=== PATIENT | female | born 1995 | race American Indian/Alaskan Native ===

== ENCOUNTER 2021-06-30 04:54 | Emergency (ER) | payer SELFPAY ==
[2021-06-30 05:37] LABS: Bilirubin,Urine NEG (Negative); Blood,Urine LG (Negative); Color,Urine Amber (Yellow); Mucus,Urine 3+ /HPF
[2021-06-30 05:38] LABS: RBC,Urine > 182.0 /HPF (0.0-6.0)
--- NOTE | 2021-06-30 05:43 | Emergency Department Report ---
HPI - HPI HPI: For the last 7 days the patient has been experiencing a pain that originated on her left flank region and has been radiating down to her left lower quadrant and suprapubic area. The pain is sharp constant severe and worse with movement and better with standing still. She has taken Tylenol with some improvement. She has had associated nausea and about 2 episodes of emesis per day but is able to tolerate fluids. She denies fever chills dysuria hematuria urinary frequency diarrhea or constipation. <RALPH ZHANG - Last Filed: 06/30/21 05:40> <BETO ROMAN - Last Filed: 06/30/21 07:00> - General Chief Complaint: Abdominal Pain Time Seen by Provider: 06/30/21 05:36 ED Past Medical Hx - Past Medical History Additional medical history: Bronchitis - Surgical History Past Surgical History?: No - Family History Family history: no significant - Social History Smoking Status: Never Smoker Substance Use Type: None <RALPH ZHANG - Last Filed: 06/30/21 05:40> <BETO ROMAN - Last Filed: 06/30/21 07:00> - Medications Home Medications: Home Medications Medication Instructions Recorded Confirmed Last Taken Type Ciprofloxacin HCl 500 mg PO BID #20 06/30/21 Unknown Rx HYDROcodone/APAP 5-325 [[place] 1 - 2 each PO Q6HR PRN #10 tablet 06/30/21 Unknown Rx 5/325] Ibuprofen [Motrin 800 MG tab] 800 mg PO Q8HR PRN #20 tablet 06/30/21 Unknown Rx ED Review of Systems ROS: Stated complaint: LT SIDE PAIN,BACK PAIN,CERVIX PAIN Other details as noted in HPI Comment: All other systems reviewed and negative <RALPH ZHANG - Last Filed: 06/30/21 05:40> ROS: Stated complaint: LT SIDE PAIN,BACK PAIN,CERVIX PAIN Other details as noted in HPI <BETO ROMAN - Last Filed: 06/30/21 07:00> Physical Exam - Physical Exam Vital Signs: Vital Signs 06/30/21 05:01 Temperature 98.3 F Pulse Rate 101 H Respiratory 18 Rate Blood Pressure 130/95 O2 Sat by Pulse 100 Oximetry Physical Exam: Physical Exam Constitutional: General: She is in mild acute distress Appearance: She is diaphoretic Head: Normocephalic. Eyes: Pupils: Pupils are equal, round, and reactive to light. Neck: Musculoskeletal: Normal range of motion. Cardiovascular: Rate and Rhythm: Normal rate and regular rhythm. Pulses: Intact distal pulses. Heart sounds: Normal heart sounds. No murmur. Pulmonary: Effort: No respiratory distress. Breath sounds: No wheezing or rales. Chest: Chest wall: No tenderness. Abdominal: General: There is no distension. Palpations: There is no mass. Tenderness: There is moderate to severe left flank tenderness to palpation as well as left lower quadrant moderate tenderness to palpation. There is some guarding and no rebound. Musculoskeletal: Normal range of motion. Skin: General: Skin is warm and dry. Neurological: Mental Status: She is alert and oriented to person, place, and time. Psychiatric: Mood and Affect: Mood and affect normal. Cognition and Memory: Memory normal. Judgment: Judgment normal. <RALPH ZHANG - Last Filed: 06/30/21 05:40> - Physical Exam Vital Signs: Vital Signs 06/30/21 05:01 Temperature 98.3 F Pulse Rate 101 H Respiratory 18 Rate Blood Pressure 130/95 O2 Sat by Pulse 100 Oximetry <BETO ROMAN - Last Filed: 06/30/21 07:00> ED Course Vital Signs 06/30/21 05:01 Temperature 98.3 F Pulse Rate 101 H Respiratory 18 Rate Blood Pressure 130/95 O2 Sat by Pulse 100 Oximetry <RALPH ZHANG - Last Filed: 06/30/21 05:40> Vital Signs 06/30/21 05:01 Temperature 98.3 F Pulse Rate 101 H Respiratory 18 Rate Blood Pressure 130/95 O2 Sat by Pulse 100 Oximetry <BETO ROMAN - Last Filed: 06/30/21 07:00> ED Medical Decision Making - Lab Data Result diagrams: 06/30/21 05:43 06/30/21 05:43 Laboratory Tests 06/30/21 06/30/21 06/30/21 05:43 05:43 05:43 WBC 9.0 RBC 4.38 Hgb 10.5 Hct 32.3 MCV 74 L MCH 24 L MCHC 33 RDW 19.1 H Plt Count 272 Lymph % (Auto) 19.8 [place] % (Auto) 7.6 H Eos % (Auto) 0.8 Baso % (Auto) 0.4 Lymph # (Auto) 1.8 [place] # (Auto) 0.7 Eos # (Auto) 0.1 Baso # (Auto) 0.0 Seg Neutrophils % 71.4 H Seg Neutrophils # 6.4 Sodium 135 L Potassium 3.3 L Chloride 100.0 Carbon Dioxide 21 L Anion Gap 17 BUN 6 L Creatinine 0.6 Estimated GFR > 60 BUN/Creatinine Ratio 10 Glucose 82 Lactic Acid Calcium 9.4 Total Bilirubin 0.30 AST 15 ALT 9 Alkaline Phosphatase 86 Total Protein 8.1 Albumin 3.7 L Albumin/Globulin Ratio 0.8 HCG, Qual Negative Urine Color Urine Turbidity Urine pH Ur Specific [place] Urine Protein Urine Glucose (UA) Urine Ketones Urine Blood Urine Nitrite Urine Bilirubin Urine Urobilinogen Ur Leukocyte Esterase Urine WBC (Auto) Urine RBC (Auto) U Epithel Cells (Auto) Urine Mucus 06/30/21 06/30/21 06:31 Unknown WBC RBC Hgb Hct MCV MCH MCHC RDW Plt Count Lymph % (Auto) [place] % (Auto) Eos % (Auto) Baso % (Auto) Lymph # (Auto) [place] # (Auto) Eos # (Auto) Baso # (Auto) Seg Neutrophils % Seg Neutrophils # Sodium Potassium Chloride Carbon Dioxide Anion Gap BUN Creatinine Estimated GFR BUN/Creatinine Ratio Glucose Lactic Acid 1.00 Calcium Total Bilirubin AST ALT Alkaline Phosphatase Total Protein Albumin Albumin/Globulin Ratio HCG, Qual Urine Color Mya Urine Turbidity Cloudy Urine pH 6.0 Ur Specific [place] 1.023 Urine Protein 100 mg/dl Urine Glucose (UA) Neg Urine Ketones 20 Urine Blood Lg Urine Nitrite Neg Urine Bilirubin Neg Urine Urobilinogen 2.0 Ur Leukocyte Esterase Sm Urine WBC (Auto) 37.0 H Urine RBC (Auto) > 182.0 U Epithel Cells (Auto) 27.0 H Urine Mucus 3+ - Radiology Data Radiology results: report reviewed (CT abdomen pelvis), image reviewed (CT abdomen pelvis) [facility] [address] [place] [address] Cat Scan Report Signed Patient: JOESPH YUSUF MR#: [id number] : 1995 Acct:[id number] Age/Sex: 25 / F ADM Date: 06/30/21 Loc: ED Attending Dr: Ordering Physician: BETO ROMAN MD Date of Service: 06/30/21 Procedure(s): CT abdomen pelvis wo con Accession Number(s): [id number] cc: BETO ROMAN MD CT ABDOMEN AND PELVIS WITHOUT CONTRAST HISTORY: Pt complains of LEFT flank / abdominal pain COMPARISON: None TECHNIQUE: Routine abdominal and pelvic CT exam performed without contrast. Lack of intravenous contrast limits evaluation of the vascular and solid organs.. All CT scans at this location are performed using CT dose reduction for ALARA by means of automated exposure control. FINDINGS: CT ABDOMEN: Lung Bases: No significant abnormality. Liver: No significant abnormality. Biliary: No significant abnormality. Spleen: No significant abnormality. Unenlarged. Pancreas: No significant abnormality. Adrenals: No significant abnormality. Kidneys: No significant abnormality. Lymphatics: No lymphadenopathy. Vasculature: No significant abnormality. Bowel/Peritoneum: No significant abnormality. No free air. No free fluid. Normal appendix. CT PELVIC: : No significant abnormality. Lymphatics: No lymphadenopathy. Osseous Structures: No aggressive appearing osseous lesions. Additional Findings: None IMPRESSION: 1. No acute findings or findings to explain the patient's symptoms. Signer Name: Inocencio Hutchinson MD Signed: 06/30/2021 6:36 AM Workstation Name: [id number] Transcribed By: RONDA Dictated By: Inocencio Hutchinson MD Electronically Authenticated By: Inocencio Hutchinson MD Signed Date/Time: 06/30/21635 DD/ 4 TD/TT: <BETO ROMAN - Last Filed: 06/30/21 07:00> Critical care attestation.: If time is entered above; I have spent that time in minutes in the direct care of this critically ill patient, excluding procedure time. <RALPH ZHANG - Last Filed: 06/30/21 05:40> Critical care attestation.: If time is entered above; I have spent that time in minutes in the direct care of this critically ill patient, excluding procedure time. <BETO ROMAN - Last Filed: 06/30/21 07:00> ED Disposition <RALPH ZHANG - Last Filed: 06/30/21 05:40> Is pt being admited?: No Does the pt Need Aspirin: No Time of Disposition: 07:00 <BETO ROMAN - Last Filed: 06/30/21 07:00> Clinical Impression: Pyelonephritis Disposition: HOME / SELF CARE / HOMELESS Condition: Stable Instructions: Abdominal Pain (ED), Pyelonephritis, Adult Additional Instructions: Return to the emergency department should you develop worsening symptoms, inability to tolerate food or liquids, high fever or any other concerns Prescriptions: Ciprofloxacin HCl 500 mg PO BID #20 Ibuprofen [Motrin 800 MG tab] 800 mg PO Q8HR PRN #20 tablet PRN Reason: Pain , Severe (7-10) HYDROcodone/APAP 5-325 [[place] 5/325] 1 - 2 each PO Q6HR PRN #10 tablet PRN Reason: Pain Referrals: [facility] [Provider Group] - 3-5 Days
[2021-06-30] MEDS: cefTRIAXone/NS 1 GM/50 ML 1 GM/50 ML BAG IV ONE (06:01)
[2021-06-30] MEDS: MORPHINE 2 MG/1 ML INJ IV ONE (06:01)
[2021-06-30] MEDS: ONDANSETRON 4 MG/2 ML INJ IV ONE (06:01)
[2021-06-30 06:02] LABS: Basophils % (Auto) 0.4 % (0.0-1.8); Eosinophils # (Auto) 0.1 K/mm3 (0.0-0.4); Eosinophils % (Auto) 0.8 % (0.0-4.3); Hematocrit 32.3 % (30.3-42.9); Hemoglobin 10.5 gm/dl (10.1-14.3); Lymphocytes # (Auto) 1.8 K/mm3 (1.2-5.4); Lymphocytes % (Auto) 19.8 % (13.4-35.0); Mean Corpuscular HGB Conc 33 % (30-34); Mean Corpuscular Volume 74 fl (79-97); Monocytes # (Auto) 0.7 K/mm3 (0.0-0.8); Monocytes % (Auto) 7.6 % (0.0-7.3); Platelet Count 272 K/mm3 (140-440); Red Blood Count 4.38 M/mm3 (3.65-5.03); Red Cell Distribution Width 19.1 % (13.2-15.2)
[2021-06-30 06:22] LABS: Alanine Aminotransferase 9 units/L (7-56); Albumin 3.7 g/dL (3.9-5); Blood Urea Nitrogen 6 mg/dL (7-17); Calcium 9.4 mg/dL (8.4-10.2); Hemolysis Index 0
[2021-06-30] MEDS ORDERED: POTASSIUM CHLORIDE ER 20 MEQ TAB PO ONE (06:25)
[2021-06-30 06:26] LABS: BUN/Creatinine Ratio 10
--- NOTE | 2021-06-30 06:40 | Cat Scan Report ---
CT ABDOMEN AND PELVIS WITHOUT CONTRAST HISTORY: Pt complains of LEFT flank / abdominal pain COMPARISON: None TECHNIQUE: Routine abdominal and pelvic CT exam performed without contrast. Lack of intravenous cont rast limits evaluation of the vascular and solid organs.. All CT scans at this location are performed using CT dose reduction for ALARA by means of automated exposure control. FINDINGS: CT ABDOMEN: Lung Bases: No significant abnormality. Liver: No significant abnormality. Biliary: No significant abnormality. Spleen: No significant abnormality. Unenlarged. Pancreas: No significant abnormality. Adrenals: No significant abnormality. Kidneys: No significant abnormality. Lymphatics: No lymphadenopathy. Vasculature: No significant abnormality. Bowel/Peritoneum: No significant abnormality. No free air. No free fluid. Normal appendix. CT PELVIC: : No significant abnormality. Lymphatics: No lymphadenopathy. Osseous Structures: No aggressive appearing osseous lesions. Additional Findings: None IMPRESSION: 1. No acute findings or findings to explain the patient's symptoms. Signer Name: Inocencio Hutchinson MD Signed: 06/30/2021 6:36 AM Workstation Name: [id number]
[2021-06-30 07:44] VITALS: BP 117/64
== END 2021-06-30 08:15 | disposition home or self-care (01) ==
LOC: ED 04:54
DX: N10 Acute pyelonephritis (principal)
CPT/HCPCS: 36415; 74176; 80053; 81001; 82140; 84703; 85025; 87040; 87086; 96365; 96375; 99284; J0696; J2270; J2405